=== PATIENT | female | born 1980 | race Caucasian/White ===

== ENCOUNTER 2023-06-06 22:18 | Emergency (ER) | payer OTHER ==
[~2023-06-06] VITALS: Ht 162.6 cm; Wt 73.0 kg
[2023-06-06 22:35] VITALS: BP_SYST 115; BP_DIAS 5; BP_DIAS 57; PULSE 77; RESP 16; TEMP 98.3; O2SAT 97
[2023-06-07] MEDS ORDERED: KETOROLAC 30 MG/ML VIAL IM ONE (00:15)
[2023-06-07] MEDS ORDERED: NAPR-54 PO (00:40)
[2023-06-07 01:04] VITALS: BP 115/57; PULSE 77; RESP 16; TEMP 98.3; O2SAT 97
== END 2023-06-07 01:04 | disposition home or self-care (01) ==
LOC: MED 22:18
DX: S63.8X1A Sprain of other part of right wrist and hand, initial encounter (principal); S80.02XA Contusion of left knee, initial encounter; Z90.49 Acquired absence of other specified parts of digestive tract; Z98.890 Other specified postprocedural states; Z79.1 Long term (current) use of non-steroidal anti-inflammatories (NSAID); V23.49XA Other motorcycle driver injured in collision with car, pick-up truck or van in traffic accident, initial encounter; Y93.89 Activity, other specified; Y92.410 Unspecified street and highway as the place of occurrence of the external cause; Y99.8 Other external cause status
CPT/HCPCS: 73060; 73090; 73560; 96372; 99284; J1885; Q0092

== ENCOUNTER 2023-07-16 00:39 | Emergency (ER) | payer MEDICAID, OTHER ==
[~2023-07-16] VITALS: Ht 152.4 cm; Wt 84.8 kg
[~2023-07-16 00:39] MED LIST: NAPR-54 PO
[2023-07-16 00:44] VITALS: BP 139/71; PULSE 97; RESP 20; TEMP 97.9; O2SAT 99
[2023-07-16] MEDS: LORazepam 0.5 MG TAB PO ONE (01:51)
[2023-07-16] MEDS: ACETAMINOPHEN EXTRA STRENGTH 500 MG TAB PO ONE (03:30)
[2023-07-16] MEDS ORDERED: ATA25 PO (03:43)
[2023-07-16 03:58] VITALS: BP 143/89; PULSE 64; RESP 18; TEMP 97.8; O2SAT 99
== END 2023-07-16 03:58 | disposition home or self-care (01) ==
LOC: MED 00:39
DX: F41.0 Panic disorder [episodic paroxysmal anxiety] (principal); R55 Syncope and collapse; Z79.899 Other long term (current) drug therapy; Z79.1 Long term (current) use of non-steroidal anti-inflammatories (NSAID); Z90.49 Acquired absence of other specified parts of digestive tract
CPT/HCPCS: 93005; 99283